=== PATIENT | female | born 2000 | race Caucasian/White ===

== ENCOUNTER 2019-04-08 16:56 | Emergency (ER) | payer OTHER ==
[2019-04-08] MEDS: LORAZEPAM 1 MG TAB PO (17:55)
[2019-04-08] MEDS: ACETAMINOPHEN 325 MG TAB PO (17:56)
[2019-04-08 19:51] LABS: ADD MAN DIFF? NO
[2019-04-08 19:53] LABS: BASOPHIL # 0.1 10^3/ul (0.0-0.1); BASOPHILS % 0.7 % (0.0-2.0); EOSINOPHILS # 0.1 10^3/ul (0.0-0.5); EOSINOPHILS % 0.9 % (0.0-7.0); HEMATOCRIT 35.9 % (37.0-47.0); HEMOGLOBIN 12.3 g/dl (12.0-16.0); LYMPHOCYTES # 2.4 10^3/ul (0.8-2.9); LYMPHOCYTES % 30.3 % (18.0-55.0); MEAN CORPUSCULAR HEMOGLOBIN 29.4 pg (29.0-33.0); MEAN CORPUSCULAR HGB CONC 34.3 g/dl (32.0-37.0); MEAN CORPUSCULAR VOLUME 85.7 fl (72.0-104.0); MEAN PLATELET VOLUME 9.4 fl (7.4-10.4); MONOCYTE # 0.6 10^3/ul (0.3-0.9); MONOCYTES % 7.2 % (0.0-13.0); NEUTROPHIL # 4.9 10^3/ul (1.6-7.5); NEUTROPHILS % 60.7 % (30.0-74.0); PLATELET COUNT 264 10^3/UL (140-415); RED BLOOD COUNT 4.19 10^6/ul (4.20-5.40)
[2019-04-08 19:53] LABS: WHITE BLOOD COUNT 8.1 10^3/ul (4.8-10.8)
[2019-04-08 20:19] LABS: D-DIMER 277.59 ng/ml (<460)
[2019-04-08 20:20] LABS: ANION GAP 5 (5-13); BLOOD UREA NITROGEN 10 mg/dl (7-20); CALCIUM 9.5 mg/dl (8.4-10.2); CARBON DIOXIDE 30 mmol/L (21-31); CHLORIDE 106 mmol/L (97-110); CREATININE 0.95 mg/dl (0.44-1.00); Estimated GFR > 60 mL/min (>60); GLUCOSE 91 mg/dl (70-220); POTASSIUM 4.5 mmol/L (3.5-5.1); SODIUM 141 mmol/L (135-144)
== END 2019-04-08 20:35 | disposition home or self-care (01) ==
LOC: FTE 16:56
DX: F41.1 Generalized anxiety disorder (principal)
CPT/HCPCS: 71045; 80048; 81025; 85025; 85378; 93005; 99284-25